=== PATIENT | male | born 1970 | race Caucasian/White ===

== ENCOUNTER → 2018-12-14 | Outpatient (CLI) | payer BC ==
--- NOTE | 2018-12-14 16:17 | RAD ---
PA and lateral chest x-ray without comparison for cough, smoker. FINDINGS: There are micronodules disseminated throughout both lungs uniformly, likely calcified, consistent with sequelae of antecedent granulomatous disease. Calcified right paratracheal and hilar adenopathy is noted. No focal infiltrates. No pneumothorax or pleural effusion. No congestive heart failure. Heart size within normal limits. IMPRESSION: 1. No acute cardiopulmonary abnormality. 2. Innumerable small calcified pulmonary nodules with hilar and mediastinal calcified adenopathy. Findings likely represent changes of antecedent granulomatous disease. Electronically signed by: Roel Ng MD (12/14/2018 4:14 PM) [facility] [id number]
== END | disposition home or self-care (01) ==
LOC: RAD 11:58
PROVIDERS: ATTEND Internal Medicine Critical Care Medicine
DX: R91.8 Other nonspecific abnormal finding of lung field (principal); R59.0 Localized enlarged lymph nodes
CPT/HCPCS: 71046